=== PATIENT | female | born 1955 | race Caucasian/White ===

== ENCOUNTER 2016-06-08 10:03 | Observation (INO) | payer OTHER ==
[2016-06-08] VITALS (10 sets, daily range): BP systolic 104–198; BP diastolic 60–98; PULSE 73–98; RESP 16–20; TEMP 97.5–97.8; O2SAT 73–100
[~2016-06-08 10:03] MED LIST: BACT800T5 PO; BUPR-175 PO; DAPA1TAB2 PO; ESTR.625 PO; ESTR42.5V PV; GABA300C3 PO; HYDR-3129 PO; HYDR-3533 PO; LANTUS2P SC; LYRI200C PO; MULTCAP PO; NEXI40CA PO; NOVOLOGP2 SQ; SAXA1TBM PO; TOPA100T8 PO
[2016-06-08] MEDS ORDERED: ASPIRIN 81 MG CHEW TAB PO ONE (10:30)
[2016-06-08] MEDS ORDERED: SODIUM CHLORIDE 0.9% FLUSH 5 ML FLUSH IVF PRN (10:30)
[2016-06-08] MEDS ORDERED: PROT40TA PO (10:36)
[2016-06-08] MEDS ORDERED: GABA600T PO (10:36)
[2016-06-08] MEDS ORDERED: NEXI40CA PO (10:36)
[2016-06-08] MEDS ORDERED: BUPR75TA PO (10:36)
[2016-06-08] MEDS ORDERED: DAPA1TAB3 PO (10:36)
[2016-06-08] MEDS ORDERED: HYDR-3366 PO (10:38)
[2016-06-08] MEDS ORDERED: NOVOLOGP2 SQ (10:38)
[2016-06-08] MEDS ORDERED: LEVEMIR SQ (10:38)
[2016-06-08] MEDS ORDERED: TOPI200 PO (10:39)
--- NOTE | 2016-06-08 10:39 | PD ---
HPI Chief Complaint: Syncope/Near-Syncope Time Seen by Provider: 10:22 Travel History International Travel<30 days: No Contact w/Intl Traveler<30days: No Traveled to known affect area: No History of Present Illness HPI 60-year-old female with history of diabetes, here by private vehicle for evaluation of near syncopal episode as well as a syncopal episode while in triage. The patient reports that she has had upper respiratory symptoms for the last week. Cough is nonproductive. She was started on a Z-Aryan on Wednesday of last week without any improvement in symptoms. She states that for the last week she has been having chest heaviness. She denies history of cardiac disease. There is family history of cardiac disease. No hemoptysis. No history of DVT or PE. Last fever was on Wednesday and was 102F. PFSH Past Medical History Anxiety: Yes Diabetes: Yes Patient Takes Glucophage: No Diminished Hearing: No Genitourinary: Yes (WAS TOLD SHE HAS CRYSTALS IN BLADDER) Hypertension: Yes Kidney Stones: Yes Psychiatric: Yes Immunizations Current: No Menopausal: Yes Past Surgical History Appendectomy: Yes Hysterectomy: Yes Tonsillectomy: Yes Other Surgery: Yes (BREAST REDUCTION) Social History Alcohol Use: No Tobacco Use: No Substance Use: No Allergies-Medications (Allergen,Severity, Reaction): Coded Allergies: Penicillin (Verified Allergy, Severe, 06/08/16) Reported Meds & Prescriptions Reported Meds & Active Scripts Active Reported Topamax (Topiramate) 200 Mg Tab 200 Mg PO HS Levemir Inj (Insulin Detemir) 1,000 unit/ 10 ML Vial 15 Units SQ HS Do not mix with any other Insulin. Novolog Inj (Insulin Aspart) 1,000 Unit/10 Ml Vial 12 Units SQ DAILY [place] (Hydrocodone-Acetaminophen) 10-325 Mg Tab 1 Tab PO BID PRN Gabapentin 600 Mg Tab 600 Mg PO BID Protonix (Pantoprazole Sodium) 40 Mg Tab 40 Mg PO DAILY Farxiga (Dapagliflozin) 10 Mg Tab 10 Mg PO DAILY Bupropion HCl 75 Mg Tab 75 Mg PO DAILY Review of Systems Except as stated in HPI: all other systems reviewed are Neg Physical Exam Narrative GENERAL: Well-developed, well-nourished, comfortable, no acute distress. SKIN: Warm and dry. No pallor. HEAD: Atraumatic. Normocephalic. EYES: Pupils equal and round. No scleral icterus. No injection or drainage. ENT: No nasal bleeding or discharge. Mucous membranes pink and moist. NECK: Trachea midline. No JVD. CARDIOVASCULAR: Regular rate and rhythm. Distal pulses brisk and equal bilaterally. RESPIRATORY: No accessory muscle use. Clear to auscultation. Breath sounds equal bilaterally. GASTROINTESTINAL: Abdomen soft, non-tender, nondistended. No pulsatile mass. MUSCULOSKELETAL: No obvious deformities. No clubbing. No cyanosis. No edema. NEUROLOGICAL: Awake and alert. No obvious cranial nerve deficits. Motor grossly within normal limits. Normal speech. PSYCHIATRIC: Appropriate mood and affect; insight and judgment normal. Data Data Last Documented VS Vital Signs Date Time Temp Pulse Resp B/P Pulse Ox O2 Delivery O2 Flow Rate FiO2 06/08/16 12:28 98 17 133/66 100 Room Air 06/08/16 10:07 97.5 Orders Electrocardiogram (06/08/16 10:26) Basic Metabolic Panel (Bmp) (06/08/16 10:26) Ckmb (Isoenzyme) Profile (06/08/16 10:26) Complete Blood Count With Diff (06/08/16 10:26) D-Dimer (06/08/16 10:26) Magnesium (Mg) (06/08/16 10:26) Prothrombin Time / Inr (Pt) (06/08/16 10:26) Act Partial Throm Time (Ptt) (06/08/16 10:26) Troponin I (06/08/16 10:26) Lipase (06/08/16 10:26) Chest, Single Ap (06/08/16 10:26) Ecg Monitoring (06/08/16 10:26) Iv Access Insert/Monitor (06/08/16 10:26) Oximetry (06/08/16 10:26) Aspirin Chew (Aspirin Chew) (06/08/16 10:30) Sodium Chloride 0.9% Flush (Ns Flush) (06/08/16 10:30) Admit Order (Ed Use Only) (06/08/16 12:49) Labs Laboratory Tests Test 06/08/16 10:45 White Blood Count 7.9 TH/MM3 Red Blood Count 4.51 MIL/MM3 Hemoglobin 13.0 GM/DL Hematocrit 40.7 % Mean Corpuscular Volume 90.2 FL Mean Corpuscular Hemoglobin 28.7 PG Mean Corpuscular Hemoglobin 31.8 % Concent Red Cell Distribution Width 13.3 % Platelet Count 200 TH/MM3 Mean Platelet Volume 7.6 FL Neutrophils (%) (Auto) 76.5 % Lymphocytes (%) (Auto) 18.5 % Monocytes (%) (Auto) 4.5 % Eosinophils (%) (Auto) 0.2 % Basophils (%) (Auto) 0.3 % Neutrophils # (Auto) 6.1 TH/MM3 Lymphocytes # (Auto) 1.5 TH/MM3 Monocytes # (Auto) 0.4 TH/MM3 Eosinophils # (Auto) 0.0 TH/MM3 Basophils # (Auto) 0.0 TH/MM3 CBC Comment DIFF FINAL Differential Comment Prothrombin Time 10.4 SEC Prothromb Time International 0.9 RATIO Ratio Activated Partial 23.8 SEC Thromboplast Time D-Dimer Quantitative (PE/DVT) 0.19 MG/L FEU Sodium Level 138 MEQ/L Potassium Level 4.3 MEQ/L Chloride Level 105 MEQ/L Carbon Dioxide Level 23.7 MEQ/L Anion Gap 9 MEQ/L Blood Urea Nitrogen 18 MG/DL Creatinine 1.52 MG/DL Estimat Glomerular Filtration 35 ML/MIN Rate Random Glucose 372 MG/DL Calcium Level 9.2 MG/DL Magnesium Level 2.1 MG/DL Total Creatine Kinase 49 U/L Troponin I LESS THAN 0.02 NG/ML Lipase 421 U/L [facility] Medical Decision Making Medical Screen Exam Complete: Yes Emergency Medical Condition: Yes Interpretation(s) EKG: Sinus, rate 72, normal axis, normal intervals, low QRS voltages in precordial leads, T-wave inversions in V1 through V3, no ST segment abnormalities. Differential Diagnosis Syncope, dysrhythmia, ACS, pneumothorax, PE, pneumonia, pericarditis, Narrative Course Initial vital signs show heart rate 80, blood pressure 137/60, pulse ox 100% on room air, oral temp of 97.5F. CBC is unremarkable. BMP is remarkable for creatinine 1.52, GFR 35, random glucose 372, otherwise unremarkable. Lipase is 421. Cardiac enzymes are negative. D-dimer is 0.19 Chest x-ray interpreted by me shows no infiltrate, no free air, no pneumothorax. Patient was made aware of all findings. She was given a full aspirin. Although she does not have known history of cardiac disease, she does have risk factors for cardiac disease including diabetes, age, and family history. She is still complaining of some chest heaviness which is worse with deep inspiration. Patient admitted for overnight observation for chest pain and syncope. Case discussed with [facility] hospitalist Dr Finch who will admit the patient to his service. Diagnosis Primary Impression: Syncope Qualified Code: R55 - Syncope, unspecified syncope type Additional Impression: Chest pain Qualified Code: R07.9 - Chest pain, unspecified type Admitting Information Admitting Physician Requests: Observation Jemal Pastrana MD Jun 08, 2016 10:39
[2016-06-08 11:02] LABS: AUTOMATED NEUTROPHIL # 6.1 TH/MM3 (1.8-7.7); BASOPHIL % 0.3 % (0.0-2.0); EOSINOPHIL % 0.2 % (0.0-4.0); HEMATOCRIT 40.7 % (35.0-46.0); HEMO FLAGS DIFF FINAL; LYMPH % 18.5 % (9.0-44.0); LYMPHOCYTE # 1.5 TH/MM3 (1.0-4.8); MEAN CELL VOLUME 90.2 FL (80.0-100.0); MEAN CORPUSCULAR HEMOGLOBIN 28.7 PG (27.0-34.0); MEAN CORPUSCULAR HGB CONC 31.8 % (32.0-36.0); MONO % 4.5 % (0.0-8.0); NEUT % 76.5 % (16.0-70.0); PLATELET COUNT 200 TH/MM3 (150-450); RED BLOOD COUNT 4.51 MIL/MM3 (4.00-5.30); RED CELL DISTRIBUTION WIDTH 13.3 % (11.6-17.2); WHITE BLOOD COUNT 7.9 TH/MM3 (4.0-11.0)
[2016-06-08 11:13] LABS: APTT (PATIENT) 23.8 SEC (24.3-30.1); INTERNATIONAL NORMALIZED RATIO 0.9 RATIO; PROTHROMBIN TIME - PATIENT 10.4 SEC (9.8-11.6)
[2016-06-08 11:18] LABS: ANION GAP 9 MEQ/L (5-15); BICARBONATE 23.7 MEQ/L (21.0-32.0); BLOOD UREA NITROGEN 18 MG/DL (7-18); CHLORIDE 105 MEQ/L (98-107); GLOMERULAR FILTRATION RATE 35 ML/MIN (>89); MAGNESIUM 2.1 MG/DL (1.5-2.5); POTASSIUM 4.3 MEQ/L (3.5-5.1); SODIUM (NA) 138 MEQ/L (136-145)
[2016-06-08 11:24] LABS: CREATINE KINASE 49 U/L (26-192)
--- NOTE | 2016-06-08 12:58 | RADRPT ---
EXAM DATE/TIME: 06/08/2016 10:49 [facility] COMPARISON: CT ABDOMEN & PELVIS W/O CONTRAST, March 11, 2013, 16:48. CT ABDOMEN & PELVIS W/O CONTRAST, 2014, 16:45. INDICATIONS : Syncope, cough, fever MEDICAL HISTORY : None. SURGICAL HISTORY : None. ENCOUNTER: Initial ACUITY: 4 - 6 days PAIN SCORE: 0/10 LOCATION: Bilateral chest FINDINGS: There is mild asymmetric elevation of the right diaphragm which is a stable appearance. No evidence o f focal infiltrate or effusion. Cardiomediastinal contours are satisfactory for technique and project ion. CONCLUSION: No acute disease Azeem Kimbrough MD on June 08, 2016 at 12:55 Board Certified Radiologist. This report was verified electronically.
[2016-06-08] MEDS ORDERED: GLUCAGON 1 MG/ML VIAL OTHER PRN (13:45)
[2016-06-08] MEDS ORDERED: ACETAMINOPHEN/HYDROcodone 325 MG/10 MG TAB PO PRN (13:45)
[2016-06-08] MEDS ORDERED: DEXTROSE 50% IN WATER 50 ML VIAL(D50) IV PUSH PRN (13:45)
--- NOTE | 2016-06-08 14:18 | EKG ---
Date Performed: 06/08/2016 Time Performed: 10:35:49 PTAGE: 60 years EKG: Sinus rhythm LOW QRS VOLTAGE IN PRECORDIAL LEADS POSSIBLE INFERIOR MYOCARDIAL INFARCTION ABNORMAL ECG NO PREVIOUS TRACING DOCTOR: Roshan Dotson Interpretating Date/Time 06/08/2016 14:16:22
--- NOTE | 2016-06-08 15:04 | RADRPT ---
EXAM DATE/TIME: 06/08/2016 14:14 [facility] COMPARISON: No previous studies available for comparison. INDICATIONS : Syncope. MEDICAL HISTORY : Diabetic. SURGICAL HISTORY : Appendectomy. Hysterectomy. Breast reduction. ENCOUNTER: Initial ACUITY: 1 day PAIN SCORE: 0/10 LOCATION: Bilateral neck PEAK SYSTOLIC VELOCITIES (cm/sec): ICA/CCA RATIO: Right: 1.0 Left: 1.0 ICA: Right: 69 Left: 68 CCA: Right: 72 Left: 66 ECA: Right: 86 Left: 93 VERTEBRAL: Right: 44 antegrade Left: 46 antegrade Elevated flow velocities and ICA/CCA ratios have been found to correlate with increased degrees of vessel stenosis, calculated as percentage of diameter relative to a normal segment of distal ICA/CCA FINDINGS: RIGHT CAROTID: No significant stenosis is visualized. The waveforms are within normal limits. LEFT CAROTID: No significant stenosis is visualized. The waveforms are within normal limits. VERTEBRAL ARTERIES: Antegrade flow is seen in both vertebral arteries. MISCELLANEOUS: None. CONCLUSION: No acute disease. Reji Jones MD on June 08, 2016 at 15:01 Board Certified Radiologist. This report was verified electronically.
[2016-06-08] MEDS ORDERED: ASPIRIN 325 MG TAB TUBE ONE (15:15)
[2016-06-08] MEDS: NITROGLYCERIN 2% OINT 1 GM PACKET TOPICAL SCH ×2 (15:41→21:19)
--- NOTE | 2016-06-08 15:46 | HHI.HP ---
[facility] Service [facility] Primary Care Physician Azeem Bee, DO Admission Diagnosis syncope, chest pain Diagnoses: Chief Complaint: cough, chest pressure, fever (Adela Chang) Travel History International Travel<30 Days: No Contact w/Intl Traveler <30 Da: No Traveled to Known Affected Are: No (Adela Chang) History of Present Illness This is a pleasant 60-year-old female who is generally in good health, history of type type 2 diabetes, hypertension, hyperlipidemia. Patient presented to the emergency room with complaint of feeling lightheaded, fever and cough. According to the patient on she started having upper respiratory symptoms, had cough, runny nose, had fevers up to 102.5. She went to see her primary care physician who prescribed a Z-Aryan which she finished yesterday. Indicates that today she went to work and felt lightheaded and faint associated with nausea. Her boss told her to go to the emergency room for evaluation. While being checked in the triage area she had a syncopal episode while sitting down. Patient endorse complain of chest heaviness, indicates this has been going on since upper respiratory symptoms. Indicates that is associated more with coughing and taking deep breaths, nonradiating, no shortness of breath. She did feel some nausea when she felt lightheaded. She denies any prior history of coronary artery disease, has never been evaluated by humane officer. She does have a positive family history of heart disease, father at age 67 from a myocardial infarction and has a brother who's had multiple stents. Denies any chest heaviness at this time, does have a cough but very little sputum. She is complaining of feeling congested. In the emergency room, she was evaluated and laboratory workup was completed which was essentially unremarkable other than creatinine been elevated 1.52. Indicates she hasn't been eating much. Troponin was negative. Lipase was 421, denies any abdominal pain. Chest x-ray did not reveal any acute findings. Vital signs were stable, no fever. Patient was given chewable aspirin. Patient is admitted for further evaluation and treatment. (Adela Chang) Review of Systems Constitutional: COMPLAINS OF: Fever, DENIES: Diaphoretic episodes, Fatigue, Weight gain, Weight loss, Chills, Dizziness, Change in appetite, Night Sweats Endocrine: DENIES: Abnorml menstrual pattern, Heat/cold intolerance, Polydipsia , Polyuria, Polyphagia Eyes: DENIES: Blurred vision, Diplopia, Eye inflammation, Eye pain, Vision loss , Photosensitivity, Double Vision Ears, nose, mouth, throat: COMPLAINS OF: Running Nose, DENIES: Tinnitus, Hearing loss, Vertigo, Nasal discharge, Oral lesions, Throat pain, Hoarseness, Ear Pain, Epistaxis, Sinus Pain, Toothache, Odynophagia Respiratory: COMPLAINS OF: Cough, DENIES: Apneas, Snoring, Wheezing, Hemoptysis, Sputum production, Shortness of breath Cardiovascular: COMPLAINS OF: Chest pain (chest pressure associated with coughing ), Syncope, DENIES: Palpitations, Dyspnea on Exertion, PND, Lower Extremity Edema, Orthopnea, Claudication Gastrointestinal: DENIES: Abdominal pain, Black stools, Bloody stools, Constipation, Diarrhea, Nausea, Vomiting, Difficulty Swallowing, Anorexia Genitourinary: DENIES: Abnormal vaginal bleeding, Dysmenorrhea, Dyspareunia, Sexual dysfunction, Urinary frequency, Urinary incontinence, Urgency, Hematuria , Dysuria, Nocturia, Vaginal discharge Musculoskeletal: DENIES: Joint pain, Muscle aches, Stiffness, Joint Swelling, Back pain, Neck pain Integumentary: DENIES: Abnormal pigmentation, Pruritus, Rash, Nail changes, Breast masses, Breast skin changes, Nipple discharge Hematologic/lymphatic: DENIES: Bruising, Lymphadenopathy Immunologic/allergic: DENIES: Eczema, Urticaria Neurologic: DENIES: Abnormal gait, Headache, Localized weakness, Paresthesias, Seizures, Speech Problems, Tremor, Poor Balance Psychiatric: DENIES: Anxiety, Confusion, Mood changes, Depression, Hallucinations, Agitation, Suicidal Ideation, Homicidal Ideation, Delusions ( Adela Chang) Past Family Social History Past Medical History Anxiety, depression Insulin-dependent diabetes for 8 years Nephrolithiasis Recently diagnosed with hypertension and hyperlipidemia Past Surgical History Tonsillectomy Appendectomy Breast reduction Hysterectomy Reported Medications Reported Meds & Active Scripts Active Reported Topamax (Topiramate) 200 Mg Tab 200 Mg PO HS Levemir Inj (Insulin Detemir) 1,000 unit/ 10 ML Vial 15 Units SQ HS Do not mix with any other Insulin. Novolog Inj (Insulin Aspart) 1,000 Unit/10 Ml Vial 12 Units SQ DAILY [place] (Hydrocodone-Acetaminophen) 10-325 Mg Tab 1 Tab PO BID PRN Gabapentin 600 Mg Tab 600 Mg PO BID Protonix (Pantoprazole Sodium) 40 Mg Tab 40 Mg PO DAILY Farxiga (Dapagliflozin) 10 Mg Tab 10 Mg PO DAILY Bupropion HCl 75 Mg Tab 75 Mg PO DAILY (Adela Chang) Allergies: Coded Allergies: Penicillin (Verified Allergy, Severe, 06/08/16) Active Ordered Medications Inpatient Medications Acetaminophen/ Hydrocodone Bitart ([place] 10-325 Mg) 1 tab BID PRN PO PAIN SCALE 1 TO 10; Start 06/08/16 at 13:45 Aspirin (Aspirin Chew) 324 mg ONCE ONCE PO Last administered on 06/08/16t 10: 57; Start 06/08/16 at 10:30; Stop 06/08/16 at 10:31; Status DC Aspirin (Aspirin) 325 mg ONCE ONCE TUBE ; Start 06/08/16 at 15:15; Stop at 15:16; Status UNV Bupropion HCl (Wellbutrin) 75 mg DAILY PO ; Start 06/09/16 at 09:00 Dextrose (D50w (Vial) Inj) 25 ml UNSCH PRN IV PUSH HYPOGLYCEMIA-SEE COMMENTS; Start 06/08/16 at 13:45 Enoxaparin Sodium (Lovenox Inj) 30 mg Q24H SQ ; Start 06/08/16 at 16:00 Famotidine (Pepcid) 20 mg HS PO ; Start 06/08/16 at 21:00 Gabapentin (Neurontin) 600 mg BID PO ; Start 06/08/16 at 21:00 Glucagon (Glucagon Inj) 1 mg UNSCH PRN OTHER HYPOGLYCEMIA-SEE COMMENTS; Start 06/08/16 at 13:45 Insulin Aspart (NovoLOG SUPPLEMENTAL SCALE) 1 ACHS SLIDING SCALE SQ ; Start at 16:00 Insulin Aspart (NovoLOG INJ) 12 units DAILY SQ ; Start 06/09/16 at 09:00 Insulin Detemir (Levemir Inj) 15 units HS SQ ; Start 06/08/16 at 21:00 IV Flush (NS Flush) 2 ml UNSCH PRN IVF FLUSH AFTER USING IV ACCESS; Start 06/08 at 10:30 Metoprolol Tartrate (Lopressor) 25 mg Q12HR PO ; Start 06/08/16 at 21:00 Nitroglycerin 0.5 inch 0.5 inch Q6H TOPICAL Last administered on 06/08/16t 15: 41; Start 06/08/16 at 15:00 Non-Formulary Medication 10 mg DAILY PO BSM; Start 06/09/16 at 09:00; Status UNV Pantoprazole Sodium (Protonix) 40 mg DAILY PO ; Start 06/09/16 at 09:00 Sodium Chloride (NS 1000 ml Inj) 1,000 ml @ 100 mls/hr Q10H IV ; Start at 16:00 Topiramate (Topamax) 200 mg HS PO ; Start 06/08/16 at 21:00 Family History Father at age 67 from myocardial infarction, prior to that had CAD and CABG Brother is alive and well, history of coronary artery disease and stents Mother from complications of MRSA Social History Patient is not , has grown children. No smoking, no alcohol, no substance abuse. Works at a [employer] (Adela ChangP) Physical Exam Vital Signs Vital Signs Date Time Temp Pulse Resp B/P Pulse Ox O2 Delivery O2 Flow Rate FiO2 06/08/16 15:43 78 16 146/68 99 Room Air 06/08/16 12:28 98 17 133/66 100 Room Air 06/08/16 10:42 74 131/62 76 144/68 145/71 06/08/16 10:39 74 16 144/70 98 Room Air 06/08/16 10:21 72 18 Room Air 06/08/16 10:07 97.5 80 20 137/60 100 Room Air Physical Exam GENERAL: This is a well-nourished, well-developed patient, in no apparent distress. SKIN: No rashes, ecchymoses or lesions. Cool and dry. HEAD: Atraumatic. Normocephalic. No temporal or scalp tenderness. EYES: Pupils equal round and reactive. Extraocular motions intact. No scleral icterus. No injection or drainage. ENT: Nose without bleeding, purulent drainage or septal hematoma. Throat without erythema, tonsillar hypertrophy or exudate. Uvula midline. Airway patent. NECK: Trachea midline. No JVD or lymphadenopathy. Supple, nontender, no meningeal signs. CARDIOVASCULAR: Regular rate and rhythm without murmurs, gallops, or rubs. RESPIRATORY: Clear to auscultation. Breath sounds equal bilaterally. No wheezes , rales, or rhonchi. GASTROINTESTINAL: Abdomen soft, non-tender, nondistended. No hepato-splenomegaly , or palpable masses. No guarding. MUSCULOSKELETAL: Extremities without clubbing, cyanosis, or edema. No joint tenderness, effusion, or edema noted. No calf tenderness. Negative Homans sign bilaterally. NEUROLOGICAL: Awake and alert. Cranial nerves II through XII intact. Motor and sensory grossly within normal limits. Five out of 5 muscle strength in all muscle groups. Normal speech. Laboratory Laboratory Tests Test 06/08/16 10:45 White Blood Count 7.9 Red Blood Count 4.51 Hemoglobin 13.0 Hematocrit 40.7 Mean Corpuscular Volume 90.2 Mean Corpuscular Hemoglobin 28.7 Mean Corpuscular Hemoglobin 31.8 Concent Red Cell Distribution Width 13.3 Platelet Count 200 Mean Platelet Volume 7.6 Neutrophils (%) (Auto) 76.5 Lymphocytes (%) (Auto) 18.5 Monocytes (%) (Auto) 4.5 Eosinophils (%) (Auto) 0.2 Basophils (%) (Auto) 0.3 Neutrophils # (Auto) 6.1 Lymphocytes # (Auto) 1.5 Monocytes # (Auto) 0.4 Eosinophils # (Auto) 0.0 Basophils # (Auto) 0.0 CBC Comment DIFF FINAL Differential Comment Prothrombin Time 10.4 Prothromb Time International 0.9 Ratio Activated Partial 23.8 Thromboplast Time D-Dimer Quantitative (PE/DVT) 0.19 Sodium Level 138 Potassium Level 4.3 Chloride Level 105 Carbon Dioxide Level 23.7 Anion Gap 9 Blood Urea Nitrogen 18 Creatinine 1.52 Estimat Glomerular Filtration 35 Rate Random Glucose 372 Calcium Level 9.2 Magnesium Level 2.1 Total Creatine Kinase 49 Troponin I LESS THAN 0.02 Lipase 421 (Adela ChangP) Result Diagram: 06/08/16 1045 06/08/16 1045 Imaging Last Impressions Chest X-Ray 06/08/16 1026 Signed Impressions: Service Date/Time: Wednesday, June 08, 2016 10:49 - CONCLUSION: No acute disease Azeem Kimbrough MD Carotid Artery Ultrasound 06/08/16 0000 Signed Impressions: Service Date/Time: Wednesday, June 08, 2016 14:14 - CONCLUSION: No acute disease. Reji Jones MD (Adela Chang) Assessment and Plan Problem List: (1) Chest pain (2) Syncope (3) Hyperlipidemia (4) HTN (hypertension) (5) Viral upper respiratory illness (6) Dehydration (7) Anxiety and depression Assessment and Plan Admit to Dr. Finch 60-year-old female presented to emergency room complaining of upper respiratory symptoms associated with feeling lightheaded, nausea, fever 102.5, nonproductive cough. During evaluation in triage, patient had syncopal episode , also endorsed chest pressure associated with coughing. Atypical chest pain, with positive family history, history of diabetes, newly diagnosed with hypertension and hyperlipidemia -Continue with serial cardiac enzymes We will check lipid profile, hemoglobin A1c Consult cardiology for evaluation Continue with aspirin 81 mg by mouth daily -Nitroglycerin 0.5 inch every 6 to chest wall Syncopal episode, possibly vasovagal, versus dehydration -Continue with cautious hydration 2-D echo Carotid ultrasound has been completed no significant stenosis -Orthostatic blood pressures every shift 2 Possible viral upper respiratory infection -Continue with symptomatic management, Flonase 2 sprays daily -Robitussin when necessary Zyrtec 10 mg by mouth daily at bedtime Acute renal injury, possibly secondary to dehydration Cautious hydration -Follow BMP in the morning Hypertension, newly diagnosed -Continue home meds Hyperlipidemia, newly diagnosed We will check lipid profile Continue home meds Insulin-dependent diabetes, poorly controlled Accu-Cheks before meals and at bedtime with insulin therapy Hemoglobin A1c has been ordered Continue Levemir 15 units subcutaneous daily at bedtime Depression and anxiety Continue with home medication Home medications have been reviewed, initiated as indicated SCDs and Lovenox for DVT prophylaxis Pepcid for GI prophylaxis Plan of care has been discussed with the patient, attending and registered nurse. Further management of the patient will be dependent on hospital course This patient was seen by myself and Dr. Finch, this H&P is written on his behalf (Adela Chang) Assessment and Plan pt is seen & Examined d/w PT d/w adela faustin w above see Orders will f/u (Whit Finch MD) Problem Qualifiers (1) Chest pain: Qualified Code: R07.9 - Chest pain, unspecified type (2) Syncope: Qualified Code: R55 - Syncope, unspecified syncope type (3) Hyperlipidemia: Qualified Code: E78.5 - Hyperlipidemia, unspecified hyperlipidemia type (4) HTN (hypertension): Qualified Code: I10 - Essential hypertension Adela Chang Jun 08, 2016 15:46 Whit Finch MD Jun 08, 2016 16:41
[2016-06-08] MEDS ORDERED: ENOXAPARIN SODIUM 30 MG/0.3 ML SYRINGE SQ SCH (16:00)
[2016-06-08] MEDS: INSULIN ASPART SUPPLEMENTAL SCALE SQ SCH ×2 (16:00→21:20)
[2016-06-08] MEDS ORDERED: guaiFENesin/DEXTROMETHORPHAN 200 MG/20 MG/10 ML CUP PO PRN (16:15)
[2016-06-08] MEDS: FLUTICASONE PROPIONATE 50 MCG/ACT 16 GM NASAL SPRAY EACH NARE SCH (17:21)
[2016-06-08] MEDS: SODIUM CHLOR 0.9% 1000 ML INJ 1,000 ML IV SCH (17:22)
[2016-06-08] MEDS: CETIRIZINE HCL 10 MG TAB PO SCH (21:00)
[2016-06-08] MEDS ORDERED: FAMOTIDINE 20 MG TAB PO SCH (21:00)
[2016-06-08] MEDS ORDERED: TOPIRAMATE 200 MG TAB PO SCH (21:00)
[2016-06-08] MEDS ORDERED: INSULIN DETEMIR 100 UNITS/ML VIAL SQ SCH (21:00)
[2016-06-08] MEDS: GABAPENTIN 300 MG CAP PO SCH (21:20)
[2016-06-08] MEDS: METOPROLOL TARTRATE 25 MG TAB PO SCH (21:20)
[2016-06-09] VITALS: PULSE 63
[2016-06-09 00:16] VITALS: BP 174/89; PULSE 87; RESP 18; TEMP 98.4; O2SAT 98
[2016-06-09] MEDS: SODIUM CHLOR 0.9% 1000 ML INJ 1,000 ML IV SCH ×2 (02:00→12:00)
[2016-06-09 03:29] LABS: HEMATOCRIT 35.1 % (35.0-46.0); MEAN CELL VOLUME 87.1 FL (80.0-100.0); MEAN CORPUSCULAR HEMOGLOBIN 29.6 PG (27.0-34.0); PLATELET COUNT 194 TH/MM3 (150-450); RED BLOOD COUNT 4.03 MIL/MM3 (4.00-5.30); RED CELL DISTRIBUTION WIDTH 13.1 % (11.6-17.2); REVIEW FLAG FINAL; WHITE BLOOD COUNT 5.8 TH/MM3 (4.0-11.0)
[2016-06-09] MEDS: NITROGLYCERIN 2% OINT 1 GM PACKET TOPICAL SCH ×2 (03:29→09:00)
[2016-06-09 04:00] VITALS: BP 114/56; PULSE 62; RESP 18; TEMP 97.8; O2SAT 97
[2016-06-09 04:03] LABS: ANION GAP 10 MEQ/L (5-15); BICARBONATE 24.4 MEQ/L (21.0-32.0); BLOOD UREA NITROGEN 16 MG/DL (7-18); CHLORIDE 111 MEQ/L (98-107); GLOMERULAR FILTRATION RATE 60 ML/MIN (>89); HDL CHOLESTEROL 28.3 MG/DL (40.0-60.0); LDL CHOLESTEROL 89 MG/DL (0-99); POTASSIUM 3.7 MEQ/L (3.5-5.1); SODIUM (NA) 145 MEQ/L (136-145)
[2016-06-09] MEDS: INSULIN ASPART SUPPLEMENTAL SCALE SQ SCH ×2 (06:00→14:00)
[2016-06-09 07:28] VITALS: PULSE 60
--- NOTE | 2016-06-09 07:35 | EC ---
Study Study Date:06/08/2016 STUDY CONCLUSIONS SUMMARY - Left ventricle: The cavity size was normal. Wall thickness was normal. Systolic function was normal. The estimated ejection fraction was in the range of 55% to 60%. Wall motion was normal; there were no regional wall motion abnormalities. - Aortic valve: Valve area: 2.21cm^2(VTI). Valve area: 2.02cm^2 (Vmax). If LV function is below 40, please consider prescribing an ACEI or ARB or document rationale for non-use. PROCEDURE DATA STUDY STATUS: Elective. Procedure: Transthoracic echocardiography. Image quality was good. Scanning was performed from the parasternal, apical, and subcostal acoustic windows. Study completion: The patient tolerated the procedure well. Transthoracic echocardiography. M-mode, complete 2D, complete spectral Doppler, and color Doppler. Height: Height: 67in. Weight: Weight: 169.6lb. Body mass index: BMI: 26.6kg/m^2. Body surface area: BSA: 1.89m^2. Patient status: Inpatient. CARDIAC ANATOMY LEFT VENTRICLE: The cavity size was normal. Wall thickness was normal. Systolic function was normal. The estimated ejection fraction was in the range of 55% to 60%. Wall motion was normal; there were no regional wall motion abnormalities. AORTIC VALVE: Trileaflet; normal thickness leaflets. Doppler: Transvalvular velocity was within the normal range. There was no stenosis. No regurgitation. Valve area: 2.21cm^2(VTI). Indexed valve area: 1.17cm^2/m^2 (VTI). Valve area: 2.02cm^2 (Vmax). Indexed valve area: 1.07cm^2/m^2 (Vmax). Mean gradient: 3mm Hg (S). AORTA: Aortic root: The aortic root was normal in size. MITRAL VALVE: Structurally normal valve. Doppler: Transvalvular velocity was within the normal range. There was no evidence for stenosis. No regurgitation. LEFT ATRIUM: The atrium was normal in size. RIGHT VENTRICLE: The cavity size was normal. Wall thickness was normal. PULMONIC VALVE: Doppler: Transvalvular velocity was within the normal range. There was no evidence for stenosis. No regurgitation. TRICUSPID VALVE: Structurally normal valve. Doppler: Transvalvular velocity was within the normal range. No regurgitation. PULMONARY ARTERY: The main pulmonary artery was normal-sized. Systolic pressure was within the normal range. RIGHT ATRIUM: The atrium was normal in size. PERICARDIUM: There was no pericardial effusion. SYSTEMIC VEINS: Inferior vena cava: The vessel was normal in size. Patient weight: 169.6lb _Ejection fraction:_ 65-75% _Fractional shortening:_ 32% up to 5Kg 5-11.5Kg 11.6-22.9Kg 23-45Kg 45-57Kg Aortic Root 7-13 <17 13-22 17-27 17-27 LA diam 6-13 <23 24-38 33-47 37-40 RVID 10-17 7-15 7-15 7-18 8-17 LVIDd 12-22 <32 24-38 33-47 37-40 LVPW 2-4 3-6 5-7 6-8 7-8 IVS 2-4 3-6 5-7 6-8 7-8 BASIC MEASUREMENTS ADULT NORMAL Left ventricle LV internal dimension, ED, chordal *37.9 mm 43-52 level, PLAX LV internal dimension, ES, chordal 27 mm 23-38 level, PLAX Fractional shortening, chordal level, *29 % >29 PLAX LV posterior wall thickness, ED 9.11 mm IVS/LVPW ratio, ED 1 <1.3 Ventricular septum Septal thickness, ED 9.11 mm Aortic valve Leaflet separation 20 mm 15-26 Aorta Root diameter, ED 29 mm Left atrium Anterior-posterior dimension 26 mm Anterior-posterior dimension index 1.38 cm/m^2 <2.2 BASIC MEASUREMENTS ADULT NORMAL Aortic valve Leaflet separation 20 mm 15-26 DOPPLER MEASUREMENTS ADULT NORMAL Aortic valve Peak velocity, S 99.3 cm/s Mean velocity, S 74.4 cm/s VTI, S 18.5 cm Mean gradient, S 3 mm Hg Valve area, VTI 2.21 cm^2 Valve area index, VTI 1.17 cm^2/m^2 Valve area, Vmax 2.02 cm^2 Valve area index, Vmax 1.07 cm^2/m^2 Mitral valve Peak E-wave velocity 56.3 cm/s Peak A-wave velocity 66.1 cm/s Deceleration time *232 ms 150-230 Peak E/A ratio 0.9 Pulmonic valve Peak velocity, S 69.2 cm/s LEGEND: Mean values are shown as u=mean value. Asterisk (*) johns values outside specified normal range. Prepared and signed by Stevie Berg [id number]
--- NOTE | 2016-06-09 07:46 | PD.CONS ---
HPI Service CV Consult Requested By Reason for Consult syncope Primary Care Physician Azeem Bee DO History of Present Illness Here with HTN, hyperlipidemia, and type 2 daibetes with URI symptoms including fever since last Wednesday. She was experiencing chest pain with coughing. 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 While in the triage area here she had a syncopal episode. Orthostatic measurement have been negative. Telemetry shows no arrhythmia. She is a never smoker. Her brother and father have heart disease but not premature. Review of Systems Consitutional: DENIES: Fatigue, Fever, Chills, Weight gain, Weight loss Eyes: DENIES: Amaurosis Fugax, Change in vision HEENT: DENIES: Lightheadedness, Change in hearing Respiratory: DENIES: See HPI, Cough, Snoring, Shortness of breath, Wheezing, Sputum production Cardiovascular: COMPLAINS OF: See HPI, DENIES: Chest pain, Palpitations, Syncope, Tachycardia Gastrointestinal: DENIES: Nausea, Vomiting, Change in bowel habits, Reflux, Bloody stools, Melena Genitourinary: DENIES: Urinary incontinence, Difficulty voiding Integumentary: DENIES: Rash Neurologic: DENIES: Tingling or numbness, Memory problems, Poor Balance, Stroke symptoms Musculoskeletal: DENIES: Joint pain, Muscle pain, Limited range of motion, Back pain Psychiatric: DENIES: Anxiety, Depression, Sleep disturbances Hematologic: DENIES: Bruising tendencies, Bleeding tendencies Endocrine: DENIES: Weight gain, Weight loss, Thyroid disease Past Family Social History Allergies: Coded Allergies: Penicillin (Verified Allergy, Severe, 06/08/16) Past Medical History Anxiety, depression Insulin-dependent diabetes for 8 years Nephrolithiasis Recently diagnosed with hypertension and hyperlipidemia Past Surgical History Tonsillectomy Appendectomy Breast reduction Hysterectomy Reported Medications Reported Meds & Active Scripts Active Reported Topamax (Topiramate) 200 Mg Tab 200 Mg PO HS Levemir Inj (Insulin Detemir) 1,000 unit/ 10 ML Vial 15 Units SQ HS Do not mix with any other Insulin. Novolog Inj (Insulin Aspart) 1,000 Unit/10 Ml Vial 12 Units SQ DAILY Olar (Hydrocodone-Acetaminophen) 10-325 Mg Tab 1 Tab PO BID PRN Gabapentin 600 Mg Tab 600 Mg PO BID Protonix (Pantoprazole Sodium) 40 Mg Tab 40 Mg PO DAILY Farxiga (Dapagliflozin) 10 Mg Tab 10 Mg PO DAILY Bupropion HCl 75 Mg Tab 75 Mg PO DAILY Active Ordered Medications Current Medications Medications (Trade) Dose Ordered Sig/Gianna Route Start Time Stop Time Status Last Admin (NS Flush) 2 ml UNSCH PRN IVF 06/08/16 10:30 (Wellbutrin) 75 mg DAILY PO 06/09/16 09:00 (Neurontin) 600 mg BID PO 06/08/16 21:00 06/08/16 21:20 (Olar 10-325 Mg) 1 tab BID PRN PO 06/08/16 13:45 06/09/16 00:20 (NovoLOG INJ) 12 units DAILY SQ 06/09/16 09:00 (Levemir Inj) 15 units HS SQ 06/08/16 21:00 06/08/16 21:20 (Protonix) 40 mg DAILY PO 06/09/16 09:00 (Topamax) 200 mg HS PO 06/08/16 21:00 06/08/16 21:19 Non-Formulary Medication 10 mg DAILY PO 06/09/16 09:00 UNV (D50w (Vial) Inj) 25 ml UNSCH PRN IV PUSH 06/08/16 13:45 (Glucagon Inj) 1 mg UNSCH PRN OTHER 06/08/16 13:45 (Lopressor) 25 mg Q12HR PO 06/08/16 21:00 06/08/16 21:20 Nitroglycerin 0.5 inch 0.5 inch Q6H TOPICAL 06/08/16 15:00 06/09/16 03:29 (NS 1000 ml Inj) 1,000 ml @ 100 mls/hr Q10H IV 06/08/16 16:00 06/08/16 17:22 (Pepcid) 20 mg HS PO 06/08/16 21:00 06/08/16 21:20 (Lovenox Inj) 30 mg Q24H SQ 06/08/16 16:00 06/08/16 17:22 (Flonase Chi Spr) 2 spray DAILY EACH NARE 06/08/16 18:00 06/08/16 17:21 (ZyrTEC) 10 mg DAILY PO 06/08/16 21:00 (Robitussin Dm 200-20 Mg/10 ml Liq) 10 ml Q6H PRN PO 06/08/16 16:15 06/08/16 17:22 (Ecotrin Ec) 81 mg DAILY PO 06/09/16 09:00 Family History see HPI Social History see HPI, denies alcohol or substance abuse Physical Exam Vital Signs Vital Signs Date Time Temp Pulse Resp B/P Pulse Ox O2 Delivery O2 Flow Rate FiO2 06/09/16 04:00 97.8 62 18 114/56 97 06/09/16 00:16 98.4 87 18 174/89 98 06/09/16 00:00 63 06/08/16 19:12 97.8 87 18 185/85 97 198/98 178/78 06/08/16 17:55 73 06/08/16 17:20 97 06/08/16 17:15 112/69 104/71 06/08/16 17:07 97.8 78 20 142/72 92 06/08/16 15:43 78 16 146/68 99 Room Air 06/08/16 12:28 98 17 133/66 100 Room Air 06/08/16 10:42 74 131/62 76 144/68 145/71 06/08/16 10:39 74 16 144/70 98 Room Air 06/08/16 10:21 72 18 Room Air 06/08/16 10:07 97.5 80 20 137/60 100 Room Air Physical Exam GENERAL: Well-nourished, well-developed patient in no apparent distress. NECK: No JVD. No carotid bruit. CARDIOVASCULAR: Regular rate and rhythm. S1/S2 no murmur, rub, or gallop. RESPIRATORY: No accessory muscle use. Clear to auscultation. Breath sounds equal bilaterally. GASTROINTESTINAL: Abdomen soft, non-tender, nondistended. MUSCULOSKELETAL: Extremities without clubbing, cyanosis, or edema. Laboratory Laboratory Tests Test 06/08/16 06/08/16 06/09/16 10:45 20:31 03:02 White Blood Count 7.9 5.8 Red Blood Count 4.51 4.03 Hemoglobin 13.0 11.9 Hematocrit 40.7 35.1 Mean Corpuscular Volume 90.2 87.1 Mean Corpuscular Hemoglobin 28.7 29.6 Mean Corpuscular Hemoglobin 31.8 34.0 Concent Red Cell Distribution Width 13.3 13.1 Platelet Count 200 194 Mean Platelet Volume 7.6 7.4 Neutrophils (%) (Auto) 76.5 Lymphocytes (%) (Auto) 18.5 Monocytes (%) (Auto) 4.5 Eosinophils (%) (Auto) 0.2 Basophils (%) (Auto) 0.3 Neutrophils # (Auto) 6.1 Lymphocytes # (Auto) 1.5 Monocytes # (Auto) 0.4 Eosinophils # (Auto) 0.0 Basophils # (Auto) 0.0 CBC Comment DIFF FINAL Differential Comment Prothrombin Time 10.4 Prothromb Time International 0.9 Ratio Activated Partial 23.8 Thromboplast Time D-Dimer Quantitative (PE/DVT) 0.19 Sodium Level 138 145 Potassium Level 4.3 3.7 Chloride Level 105 111 Carbon Dioxide Level 23.7 24.4 Anion Gap 9 10 Blood Urea Nitrogen 18 16 Creatinine 1.52 0.95 Estimat Glomerular Filtration 35 60 Rate Random Glucose 372 129 Calcium Level 9.2 8.6 Magnesium Level 2.1 Total Creatine Kinase 49 Troponin I LESS THAN 0.02 LESS THAN 0.02 LESS THAN 0.02 Lipase 421 Triglycerides Level 274 Cholesterol Level 172 LDL Cholesterol 89 HDL Cholesterol 28.3 Cholesterol/HDL Ratio 6.07 Result Diagram: 06/09/16 0302 06/09/16 0302 Assessment and Plan Problem List: (1) Chest pain (2) Syncope (3) HTN (hypertension) Assessment and Plan Chest pain likely noncardiac, yet in the face of her risk factors we will get a Lexiscan SPECT. Echo is normal HTN - normal now, should add CHRIS-I if BP will allow syncope - continue to monitor telemetry Also with diabetes she should take a statin drug Problem Qualifiers (1) Chest pain: Qualified Code: R07.9 - Chest pain, unspecified type (2) Syncope: Qualified Code: R55 - Syncope, unspecified syncope type (3) HTN (hypertension): Qualified Code: I10 - Essential hypertension Yonathan Oconnell Jun 09, 2016 07:45
[2016-06-09 07:50] VITALS: BP 120/64; PULSE 66; RESP 18; TEMP 98.1; O2SAT 94
[2016-06-09] MEDS: buPROPion HCL 75 MG TAB PO SCH ×2 (09:00→14:41)
[2016-06-09] MEDS: CETIRIZINE HCL 10 MG TAB PO SCH ×2 (09:00→14:41)
[2016-06-09] MEDS ORDERED: PANTOPRAZOLE SOD 40 MG DELAYED RELEASE TAB PO SCH (09:00)
[2016-06-09] MEDS ORDERED: ASPIRIN EC 81 MG TABEC PO SCH (09:00)
[2016-06-09] MEDS: FLUTICASONE PROPIONATE 50 MCG/ACT 16 GM NASAL SPRAY EACH NARE SCH (09:00)
[2016-06-09] MEDS ORDERED: INSULIN ASPART 1,000 UNITS/10 ML VIAL SQ SCH (09:00)
--- NOTE | 2016-06-09 09:09 | HHI.PR ---
Subjective Remarks Pt reports that she is feeling much better today overall. She states that she only has chest pain when she coughs and does not want a Lexiscan performed during this admission. She denies any fevers or chills. Pt states that she wants to eat. She had not been eating much for the last few days and was notably dehydrated at admission. Objective Vitals Vital Signs Date Time Temp Pulse Resp B/P Pulse Ox O2 Delivery O2 Flow Rate FiO2 06/09/16 07:50 98.1 66 18 120/64 94 06/09/16 04:00 97.8 62 18 114/56 97 06/09/16 00:16 98.4 87 18 174/89 98 06/09/16 00:00 63 06/08/16 19:12 97.8 87 18 185/85 97 198/98 178/78 06/08/16 17:55 73 06/08/16 17:20 97 06/08/16 17:15 112/69 104/71 06/08/16 17:07 97.8 78 20 142/72 92 06/08/16 15:43 78 16 146/68 99 Room Air 06/08/16 12:28 98 17 133/66 100 Room Air 06/08/16 10:42 74 131/62 76 144/68 145/71 06/08/16 10:39 74 16 144/70 98 Room Air 06/08/16 10:21 72 18 Room Air 06/08/16 10:07 97.5 80 20 137/60 100 Room Air Result Diagram: 06/09/16 0302 06/09/16 0302 Other Results Laboratory Tests Test 06/08/16 06/08/16 06/09/16 10:45 20:31 03:02 White Blood Count 7.9 TH/MM3 5.8 TH/MM3 Red Blood Count 4.51 MIL/MM3 4.03 MIL/MM3 Hemoglobin 13.0 GM/DL 11.9 GM/DL Hematocrit 40.7 % 35.1 % Mean Corpuscular Volume 90.2 FL 87.1 FL Mean Corpuscular Hemoglobin 28.7 PG 29.6 PG Mean Corpuscular Hemoglobin 31.8 % 34.0 % Concent Red Cell Distribution Width 13.3 % 13.1 % Platelet Count 200 TH/MM3 194 TH/MM3 Mean Platelet Volume 7.6 FL 7.4 FL Neutrophils (%) (Auto) 76.5 % Lymphocytes (%) (Auto) 18.5 % Monocytes (%) (Auto) 4.5 % Eosinophils (%) (Auto) 0.2 % Basophils (%) (Auto) 0.3 % Neutrophils # (Auto) 6.1 TH/MM3 Lymphocytes # (Auto) 1.5 TH/MM3 Monocytes # (Auto) 0.4 TH/MM3 Eosinophils # (Auto) 0.0 TH/MM3 Basophils # (Auto) 0.0 TH/MM3 CBC Comment DIFF FINAL Differential Comment Prothrombin Time 10.4 SEC Prothromb Time International 0.9 RATIO Ratio Activated Partial 23.8 SEC Thromboplast Time D-Dimer Quantitative (PE/DVT) 0.19 MG/L FEU Sodium Level 138 MEQ/L 145 MEQ/L Potassium Level 4.3 MEQ/L 3.7 MEQ/L Chloride Level 105 MEQ/L 111 MEQ/L Carbon Dioxide Level 23.7 MEQ/L 24.4 MEQ/L Anion Gap 9 MEQ/L 10 MEQ/L Blood Urea Nitrogen 18 MG/DL 16 MG/DL Creatinine 1.52 MG/DL 0.95 MG/DL Estimat Glomerular Filtration 35 ML/MIN 60 ML/MIN Rate Random Glucose 372 MG/DL 129 MG/DL Calcium Level 9.2 MG/DL 8.6 MG/DL Magnesium Level 2.1 MG/DL Total Creatine Kinase 49 U/L Troponin I LESS THAN 0.02 LESS THAN 0.02 LESS THAN 0.02 NG/ML NG/ML NG/ML Lipase 421 U/L Triglycerides Level 274 MG/DL Cholesterol Level 172 MG/DL LDL Cholesterol 89 MG/DL HDL Cholesterol 28.3 MG/DL Cholesterol/HDL Ratio 6.07 RATIO Imaging Last Impressions Chest X-Ray 06/08/16 1026 Signed Impressions: Service Date/Time: Wednesday, June 08, 2016 10:49 - CONCLUSION: No acute disease Azeem Kimbrough MD Carotid Artery Ultrasound 06/08/16 0000 Signed Impressions: Service Date/Time: Wednesday, June 08, 2016 14:14 - CONCLUSION: No acute disease. Reji Jones MD Objective Remarks General: NAD, AAOx3 Chest: CTA bilaterally Cardiac: Regular Abd: +BS, soft ND/NT Ext: No edema A/P Problem List: (1) Chest pain Status: Acute Plan: - Pt was admitted with complaints of congestion, lightheadedness, nausea, fever 102.5, nonproductive cough. - Pt was prescribed a Z-Aryan as an outpt which she finished yesterday. - During evaluation in triage, patient had syncopal episode, and complained of chest pressure associated with coughing. - Her chest heaviness has been going on since upper respiratory symptoms began, associated more with coughing and taking deep breaths, nonradiating, no shortness of breath. - CE were negative x 3 - Cardiology was consulted - Pts chest pain is very atypical but secondary to increased risk factors, including positive family history, diabetes, newly diagnosed with hypertension and hyperlipidemia she was planned for Lexiscan today. - Pt is refusing Lexiscan, she reports that pain only occurs when coughing and does not want a stress test. - ASA 81 mg daily - Pt has Nitroglycerin 0.5 inch Q6H to chest wall ordered - Metoprolol 25mg Q12H - Pt would like to go home today. - DVT prophylaxis with Lovenox (2) Viral upper respiratory illness Status: Acute Plan: - See above. - Robitussin AC PRN cough (3) HTN (hypertension) Status: Chronic Plan: - Stable. - Home meds resumed (4) Hyperlipidemia Status: Chronic Plan: - Pt reportedly on Pravachol but this is not on her MAR or in [facility] EHR - We will start lowest dose (5) Dehydration Status: Acute Plan: - Pts renal function was slightly worse than baseline at admission, secondary to dehydration. - Improved with IVF (6) Anxiety and depression Status: Chronic Plan: - Home meds continued Assessment and Plan Patient examined. Assessment and plan formulated with Naheed Sylvester PA-C. I agree with the above. had some cp with cough. still some chest congestion from respiratory illness that began last week. took zpack. her brother now with same sx's. she wants to go home. says she had lhh 5 or 6 yrs ago and her pain now is msk from cough. lung with scattered wheeze/rhonci. will give albuterol mdi d/c and f/u pcp. dehydration/julius resolved. ambulating safely. Problem Qualifiers (1) Chest pain: Qualified Code: R07.9 - Chest pain, unspecified type (2) HTN (hypertension): Qualified Code: I10 - Essential hypertension (3) Hyperlipidemia: Qualified Code: E78.5 - Hyperlipidemia, unspecified hyperlipidemia type Naheed Sylvester Jun 09, 2016 09:09 Moises Cruz MD Jun 09, 2016 13:56
[2016-06-09] MEDS ORDERED: guaiFENesin/CODEINE SYRUP 200 MG/20 MG/10 ML CUP PO PRN (09:30)
[2016-06-09] MEDS ORDERED: ROBIDM5S PO (09:38)
--- NOTE | 2016-06-09 09:53 | HHI.DCPOC ---
Discharge Care Plan Diagnosis: (1) Viral upper respiratory illness (2) Chest pain (3) Anxiety and depression (4) HTN (hypertension) (5) Hyperlipidemia (6) Dehydration (7) Syncope Goals to Promote Your Health * To prevent worsening of your condition and complications * To maintain your health at the optimal level Directions to Meet Your Goals Take your medications as prescribed Follow your dietary instruction Follow activity as directed Keep your appointments as scheduled Take your immunizations and boosters as scheduled If your symptoms worsen call your PCP, if no PCP go to Urgent Care Center or Emergency Room Smoking is Dangerous to Your Health. Avoid second hand smoke Call the 24-hour hour crisis hotline for domestic abuse at Naheed Sylvester Jun 09, 2016 09:53
[2016-06-09] MEDS: GABAPENTIN 300 MG CAP PO SCH (12:56)
[2016-06-09] MEDS: METOPROLOL TARTRATE 25 MG TAB PO SCH (12:56)
[2016-06-09 13:38] VITALS: BP 131/60; PULSE 66; RESP 18; TEMP 98.3; O2SAT 97
[2016-06-09] MEDS ORDERED: VENTAER INH (13:58)
[2016-06-09] MEDS ORDERED: [UNRECOGNIZED DRUG - OTHER] PO SCH (14:00)
[2016-06-09] MEDS ORDERED: DAPAGLIFLOZIN PO SCH (14:00)
[2016-06-09] MEDS ORDERED: GUAISYP4 PO (14:06)
[2016-06-09 16:16] LABS: HEMOGLOBIN A1a 1.2 %; HEMOGLOBIN A1b 2.4 %; HEMOGLOBIN Ao 80.4 %; HEMOGLOBIN P3 4.2 %
== END 2016-06-09 16:20 | disposition home or self-care (01) ==
LOC: NEPC 10:03 → NEDA 12:50 → NEPGCP 17:00
PROVIDERS: ADMIT Hospitalist; ATTEND Hospitalist
DX: R55 Syncope and collapse (principal); R07.9 Chest pain, unspecified; E11.65 Type 2 diabetes mellitus with hyperglycemia; R05 Cough; Z82.49 Family history of ischemic heart disease and other diseases of the circulatory system; I10 Essential (primary) hypertension; Z79.899 Other long term (current) drug therapy; Z79.4 Long term (current) use of insulin; E78.5 Hyperlipidemia, unspecified; E86.0 Dehydration; F32.9 Major depressive disorder, single episode, unspecified; F41.9 Anxiety disorder, unspecified; Z79.82 Long term (current) use of aspirin; N17.9 Acute kidney failure, unspecified
CPT/HCPCS: 71010; 80048; 80061; 82550; 82948; 83036; 83690; 83735; 84484; 85025; 85027; 85379; 85610; 85730; 93005; 93306; 93880; 99285; G0378; J1650; J1815; J7030